=== PATIENT | female | born 1960 | race Caucasian/White ===

== ENCOUNTER → 2018-09-21 | Outpatient (REF) | LOC: ZLAB.WCH 16:14 | DX: Z01.89 Encounter for other specified special examinations (principal) ==

== ENCOUNTER → 2018-09-25 | Outpatient (REF) | LOC: ZLAB.WCH 19:13 | DX: Z01.89 Encounter for other specified special examinations (principal) ==

== ENCOUNTER → 2018-10-29 | Outpatient (REF) | LOC: ZLAB.WCH 10:32 | DX: Z01.89 Encounter for other specified special examinations (principal) ==